=== PATIENT | female | born 1975 | race Caucasian/White ===

== ENCOUNTER 2020-04-24 08:02 | Day surgery (SDC) | payer OTHER ==
[~2020-04-24 08:02] MED LIST: Lactated Ringers 1,000 ML IV SCH; Lidocaine 1%/Sod Bicarbonate in NS 8.4% 1 ML Syringe IDERM PRN; Sodium Chloride 0.9% 10 ML Syringe FLUSH PRN
[2020-04-24] MEDS ORDERED: Scopolamine 1.5 MG Transdermal Patch TRDERM PRN (08:59)
--- NOTE | 2020-04-24 09:18 | PCM.PREANE ---
Preanesthetic Assessment - Procedure Proposed Procedure: umbilical hernia repair - Anesthesia/Transfusion/Family Hx Anesthesia History: Prior Anesthesia Reaction (nausea) Family History of Anesthesia Reaction: No Transfusion History: No Prior Transfusion(s) - Review of Systems General: No Symptoms Pulmonary: No Symptoms Cardiovascular: No Symptoms Gastrointestinal: No Symptoms Neurological: No Symptoms Other: Reports: None - Physical Assessment NPO Status Date: 04/23/20 NPO Status Time: 00:00 Height: 1.65 m Weight: 58.1 kg ASA Class: 2 Mental Status: Alert & Oriented x3 Airway Class: Mallampati = 1 Dentition: Reports: Goff(s) Thyro-Mental Finger Breadths: 3 Mouth Opening Finger Breadths: 3 ROM/Head Extension: Full Lungs: Clear to Auscultation, Normal Respiratory Effort Cardiovascular: Regular Rate, Regular Rhythm - Lab Values: Laboratory Last Values Urine HCG, Qual Negative (NEGATIVE) 04/24/20 08:11 - Allergies Allergies/Adverse Reactions: Allergies Allergy/AdvReac Type Severity Reaction Status Date / Time No Known Allergies Allergy Verified 04/24/20 09:00 - Blood Blood Available: No Product(s) Available: None - Anesthesia Plan Pre-Op Medication Ordered: None - Acknowledgements Anesthesia Type Planned: MAC Pt an Appropriate Candidate for the Planned Anesthesia: Yes Alternatives and Risks of Anesthesia Discussed w Pt/Guardian: Yes Pt/Guardian Understands and Agrees with Anesthesia Plan: Yes PreAnesthesia Questionnaire - Past Health History Medical/Surgical History: Denies Medical/Surgical History HEENT History: Reports: None Cardiovascular History: Reports: None Respiratory History: Reports: None Gastrointestinal History: Reports: Other (See Below) Other Gastrointestinal History: abdominal hernia Genitourinary History: Reports: Other (See Below) Other Genitourinary History: menorrhagia, left breast mass, cervix cryosurgery, colposcopy, hysteroscopy with ablation [employer]ATING [employer] History: Reports: Neurological History: Reports: None Psychiatric History: Reports: None Endocrine/Metabolic History: Reports: None Hematologic History: Reports: None Immunologic History: Reports: None Oncologic (Cancer) History: Reports: None Dermatologic History: Reports: Other (See Below) Other Dermatologic History: dermatitis - Infectious Disease History Infectious Disease History: Reports: None - Past Surgical History Head Surgeries/Procedures: Reports: None HEENT Surgical History: Reports: Oral Surgery Cardiovascular Surgical History: Reports: None Respiratory Surgical History: Reports: None GI Surgical History: Reports: None Female Surgical History: Reports: None Male Surgical History: Reports: None Endocrine Surgical History: Reports: None Neurological Surgical History: Reports: None Musculoskeletal Surgical History: Reports: Other (See Below) Other Musculoskeletal Surgeries/Procedures:: right ankle surgery Oncologic Surgical History: Reports: None - SUBSTANCE USE Tobacco Use Status *Q: Never Tobacco User Second Hand Smoke Exposure: No Days Per Week of Alcohol Use: 1 Number of Drinks Per Day: 1 Total Drinks Per Week: 1 Recreational Drug Use History: No - HOME MEDS Home Medications: Home Meds Multivitamin 1 tab PO DAILY 04/23/20 [History] - CURRENT (IN HOUSE) MEDS Current Meds: Current Medications Lactated Ringer's (Ringers, Lactated) 1,000 mls @ 125 mls/hr IV ASDIRECTED AFSHIN Stop: 04/24/20 23:00 Lidocaine/Sodium Bicarbonate (Buffered Lidocaine 1% In Ns 8.4%) 0.25 ml IDERM ONETIME PRN PRN Reason: Prior to IV Start Stop: 04/24/20 18:00 Scopolamine (Transderm-Scop) 1.5 mg TRDERM Q72H PRN PRN Reason: Nausea Stop: 04/24/20 18:00 Last Admin: 04/24/20 09:07 Dose: 1.5 mg Documented by: Sodium Chloride (Saline Flush) 10 ml FLUSH ASDIRECTED PRN PRN Reason: Keep Vein Open Stop: 04/24/20 18:00
[2020-04-24] MEDS ORDERED: fentaNYL 250 MCG/5 ML SDV ONE (09:57)
[2020-04-24] MEDS ORDERED: Midazolam 1 MG/ML 2 ML SDV ONE (09:57)
[2020-04-24] MEDS ORDERED: Propofol 200 MG/20 ML SDV ONE (09:57)
[2020-04-24] MEDS ORDERED: Ketamine 500 mg/10 ML MDV ONE (10:01)
[2020-04-24] MEDS ORDERED: ceFAZolin 1 GM Vial ONE (10:03)
[2020-04-24] MEDS ORDERED: Lactated Ringers 1,000 ML ONE (10:09)
[2020-04-24] MEDS: Bupivacaine 0.5% 30 ML SDV ONE ×2 (10:18→10:32)
[2020-04-24] MEDS ORDERED: Ondansetron 4 MG/2 ML SDV ONE (10:30)
--- NOTE | 2020-04-24 10:51 | PCM.PRNOTE ---
- Free Text/Narrative Note: Date: 04/23/2020 Operation: open primary umbilical hernia repair Surgeon: Bienvenido Villareal MD Antibiotic: 2 g ancef IV EBL: minimal Findings: 1 cm fat-containing umbilical hernia. Detailed Report: The patient was taken to the operating room and placed in supine position. Timeout was performed, and monitored anesthesia care was initiated. The abdomen was prepped and draped in usual sterile fashion. A total of 20 cc of 0.5% Marcaine was used for local anesthetic throughout the case. A periumbilical midline incision was made using a knife. Dissection to subcutaneous tissue was done with monopolar energy. The umbilical stalk was dissected circumferentially, and the stalk was grasped and elevated with a clamp. The umbilical stalk was transected with monopolar energy at the level of the abdominal wall fascia. The hernia contained a small amount of fatty tissue. The hernia sac was removed from the overlying umbilical skin. The fascia was closed transversely with 3 interrupted 0 Vicryl sutures. The umbilical skin was tacked down to the fascia with 0 Vicryl suture, and several interrupted deep dermal Vicryl sutures were placed to approximate the skin edges. A running subcuticular Vicryl stitch was then placed for skin closure, and the wound was dressed with Dermabond. The patient tolerated the operation well.
--- NOTE | 2020-04-24 10:52 | PCM48HPAN ---
Post Anesthesia Note - EVALUATION WITHIN 48HRS OF ANESTHETIC Vital Signs in Normal Range: Yes Patient Participated in Evaluation: No Respiratory Function Stable: Yes Airway Patent: Yes Cardiovascular Function Stable: Yes Hydration Status Stable: Yes Pain Control Satisfactory: Yes Nausea and Vomiting Control Satisfactory: Yes Mental Status Recovered: No (sleepy) Vital Signs: Last Vital Signs Temp 97.8 F 04/24/20 10:46 Pulse 60 04/24/20 10:46 Resp 12 04/24/20 10:46 BP 78/53 L 04/24/20 10:46 Pulse Ox 95 04/24/20 10:46
[2020-04-24 14:01] VITALS: BP 117/85; PULSE 63
== END 2020-04-24 13:20 | disposition home or self-care (01) ==
LOC: JD.SDS 08:02
PROVIDERS: ATTEND Surgery
DX: K42.9 Umbilical hernia without obstruction or gangrene (principal); Z98.890 Other specified postprocedural states
CPT/HCPCS: 81025; A9270-GY; J0690; J2250; J2405; J2704; J3010; J3490; J7120

== ENCOUNTER 2024-05-29 08:20 | Emergency (ER) | payer OTHER ==
[2024-05-29] MEDS: Sodium Chloride 0.9% 10 ML Syringe FLUSH PRN (08:30)
[2024-05-29] MEDS: Aspirin 81 MG Tab.Chew PO ONE (08:55)
[2024-05-29 08:56] LABS: BASOPHILS ABSOLUTE AUTO 0.1 K/mm3 (0.0-0.2); BASOPHILS PERCENT AUTO 1.2 % (0.0-1.0); EOSINOPHILS ABSOLUTE AUTO 0.1 K/mm3 (0.0-0.4); EOSINOPHILS PERCENT AUTO 1.8 % (0.0-6.0); HEMATOCRIT 43.4 % (37.0-47.0); HEMOGLOBIN 14.6 gm/dl (12.0-16.0); IMMATURE GRAN ABSOLUTE AUTO 0.01 K/mm3 (0.00-0.05); IMMATURE GRAN PERCENT AUTO 0.2 % (0.0-0.4); LYMPHOCYTES ABSOLUTE AUTO 1.6 K/mm3 (1.0-4.8); LYMPHOCYTES PERCENT AUTO 26.2 % (24.0-44.0); MEAN CORPUSCULAR HEMOGLOBIN 27.5 pg (28.0-32.0); MEAN CORPUSCULAR HGB CONC 33.6 g/dl (32.0-36.0); MEAN CORPUSCULAR VOLUME 81.7 fl (83.0-99.0); MEAN PLATELET VOLUME 9.7 fl (9.4-12.3); MONOCYTES ABSOLUTE AUTO 0.5 K/mm3 (0.0-0.8); MONOCYTES PERCENT AUTO 8.6 % (0.0-8.0); NEUTROPHILS ABSOLUTE AUTO 3.8 K/mm3 (1.8-7.7); PLATELET COUNT,PLT 353 K/mm3 (150-400); RED BLOOD CELL COUNT 5.31 M/mm3 (4.10-5.30); WHITE BLOOD CELL COUNT,WBC 6.07 K/mm3 (3.9-11.3)
[2024-05-29 09:19] LABS: A/G RATIO 1.1 (1-2); ALANINE AMINOTRANSFERASE,ALT 34 U/L (14-59); ALBUMIN 4.2 g/dl (3.4-5.0); ALKALINE PHOSPHATASE 107 U/L (46-116); ANION GAP 14.8 (5-15); ASPARTATE AMNIOTRANSFERASE,AST 23 U/L (15-37); BILIRUBIN TOTAL 1.3 mg/dL (0.2-1.0); BLOOD UREA NITROGEN,BUN 19 mg/dL (7-18); BUN/CREATININE RATIO 17.3 (14-18); CALCIUM 9.4 mg/dL (8.5-10.1); CARBON DIOXIDE,CO2 25 mEq/L (21-32); CHLORIDE,CL 101 mEq/L (98-107); CREATININE 1.1 mg/dL (0.55-1.02); EST CRCL DRUG DOSING (CG) 55.06 mL/min; ESTIMATED GFR 61 mL/min (>60); GLUCOSE RANDOM 88 mg/dL (70-99); MAGNESIUM 1.9 mg/dL (1.8-2.4); POTASSIUM,K 3.8 mEq/L (3.5-5.1); PROTEIN TOTAL,TP 8.2 g/dl (6.4-8.2); SODIUM,NA 137 mEq/L (136-145)
[2024-05-29 09:25] LABS: C-REACTIVE PROTEIN < 0.05 mg/dL (<0.30)
[2024-05-29 13:08] VITALS: BP 108/80; PULSE 72
== END 2024-05-29 13:05 | disposition home or self-care (01) ==
LOC: JD.ED 08:20
DX: R07.89 Other chest pain (principal); Z79.899 Other long term (current) drug therapy
CPT/HCPCS: 36415; 70450; 80053; 83735; 84484; 85025; 85379; 86140; 93005; 99285; A9270